=== PATIENT | male | born 1945 | race Caucasian/White ===

== ENCOUNTER 2019-12-27 05:52 | Day surgery (SDC) | payer OTHER ==
[~2019-12-27] VITALS: Ht 167.6 cm; Wt 72.6 kg
[~2019-12-27 05:52] MED LIST: AMLO5TAB15 PO; GLIM4TAB42 PO; HYDR-392 PO; ISOS60TA24 PO; METF-372 PO
[2019-12-27] MEDS ORDERED: LIDOCAINE W/ EPINEPHRINE 2% INJ 20ML VIAL ONE (07:14)
[2019-12-27] MEDS ORDERED: BUPIVACAINE W/ EPINEPH 0.25% INJ 50ML MDV ONE (07:15)
[2019-12-27] MEDS ORDERED: ACCU-CHEK COMFORT CURVE STRIP VI ONE (07:45)
[2019-12-27] MEDS ORDERED: ONDANSETRON HCL 4 MG/2 ML VIAL IV PRN (07:45)
[2019-12-27] MEDS ORDERED: HYDROmorphone HCL 2 MG/ML VL IV PRN (07:45)
[2019-12-27] MEDS ORDERED: MORPHINE SULFATE 4 MG/ML SYR/VIAL IV PRN (07:45)
[2019-12-27 08:55] VITALS: BP 130/72
== END 2019-12-27 09:09 | disposition home or self-care (01) ==
LOC: ORTHO 05:52
PROVIDERS: ATTEND Anesthesiology Pain Medicine
DX: M96.1 Postlaminectomy syndrome, not elsewhere classified (principal); M51.16 Intervertebral disc disorders with radiculopathy, lumbar region; M51.36 Other intervertebral disc degeneration, lumbar region; M48.062 Spinal stenosis, lumbar region with neurogenic claudication; I25.2 Old myocardial infarction; E11.22 Type 2 diabetes mellitus with diabetic chronic kidney disease; I12.9 Hypertensive chronic kidney disease with stage 1 through stage 4 chronic kidney disease, or unspecified chronic kidney disease; N18.1 Chronic kidney disease, stage 1; G89.29 Other chronic pain; E11.42 Type 2 diabetes mellitus with diabetic polyneuropathy; I25.10 Atherosclerotic heart disease of native coronary artery without angina pectoris; F17.210 Nicotine dependence, cigarettes, uncomplicated; Z88.1 Allergy status to other antibiotic agents; Z79.899 Other long term (current) drug therapy; Z98.890 Other specified postprocedural states; Z20.828 Contact with and (suspected) exposure to other viral communicable diseases; Z96.643 Presence of artificial hip joint, bilateral; Z95.5 Presence of coronary angioplasty implant and graft
CPT/HCPCS: 63650; 71045; 72100; 82962; 95972; A4215; C1778; C1820; J1170; J2270; U0003; 76000; 77003

== ENCOUNTER → 2020-07-03 | Day surgery (SDC) | payer OTHER ==
[~2020-07-03] VITALS: Ht 167.6 cm; Wt 77.1 kg
[~2020-07-03] MED LIST changes: +AMLO-489 PO; -AMLO5TAB15 PO; +BUPIVACAINE W/ EPINEPH 0.25% INJ 50ML MDV ONE; +CLINDAMYCIN 600MG IV 50 ML IV ONE; +HYDROmorphone HCL 2 MG/ML VL IV PRN; +LIDOCAINE 1% HCL (LOCAL ANESTH.) INJ 20ML MDV ONE; +LIDOCAINE W/ EPINEPHRINE 2% INJ 20ML VIAL ONE; +METOCLOPRAMIDE HCL 5MG/ml INJ 2ml VIAL IV PRN; +MIDAZOLAM HCL 1MG/1ML-2 ML VIAL ONE; +MORPHINE SULF(PF) 0.5MG/ML 10ML VIAL ONE; +MORPHINE SULFATE 4 MG/ML SYR/VIAL IV PRN; +ONDANSETRON HCL 4 MG/2 ML VIAL ONE; +PROPOFOL 10 MG/ML 20 ML IV ONE; +SODIUM CHLORIDE LOCK 0 ML ONE; +SODIUM CHLORIDE LOCK 10 ML ONE; +SUCCINYLCHOLINE CHLORIDE 20 MG/ML 10ML VIAL IV ONE; +VANCOMYCIN HCL 1000 MG VL ONE; +fentaNYL CITRATE 100 MCG/2 ML VL ONE
[2020-07-03 11:10] VITALS: BP 137/85
== END | disposition home or self-care (01) ==
LOC: ORTHO 06-26 05:49
PROVIDERS: ATTEND Anesthesiology Pain Medicine
DX: M54.5 Low back pain (principal); M48.062 Spinal stenosis, lumbar region with neurogenic claudication; M51.36 Other intervertebral disc degeneration, lumbar region; M96.1 Postlaminectomy syndrome, not elsewhere classified; M51.16 Intervertebral disc disorders with radiculopathy, lumbar region; I25.10 Atherosclerotic heart disease of native coronary artery without angina pectoris; I25.2 Old myocardial infarction; I12.9 Hypertensive chronic kidney disease with stage 1 through stage 4 chronic kidney disease, or unspecified chronic kidney disease; E11.22 Type 2 diabetes mellitus with diabetic chronic kidney disease; N18.2 Chronic kidney disease, stage 2 (mild); E07.9 Disorder of thyroid, unspecified; G89.29 Other chronic pain; F17.210 Nicotine dependence, cigarettes, uncomplicated; E66.9 Obesity, unspecified; Z20.822 Contact with and (suspected) exposure to COVID-19; Z98.890 Other specified postprocedural states; Z79.899 Other long term (current) drug therapy; Z96.649 Presence of unspecified artificial hip joint; Z79.84 Long term (current) use of oral hypoglycemic drugs; Z88.1 Allergy status to other antibiotic agents
CPT/HCPCS: 63650; 63685; 72100; 76001; 82962; 95972; A4215; C1787; C1820; C1897; J0330; J2001; J2250; J2270; J2405; J2704; J3010; J3370; J3490; U0003